=== PATIENT | male | born 1975 | race Caucasian/White ===

== ENCOUNTER 2018-04-24 17:59 | Emergency (ER) | payer SELFPAY ==
[2018-04-24 18:39] VITALS: BP 129/76
--- NOTE | 2018-04-24 20:07 | XRay Report ---
FINAL REPORT EXAM: XR HAND 3+V RT HISTORY: pain/swelling r/t puncture wound from nail old injury 4th metacarpal. New injury to the base of the index finger TECHNIQUE: Three views right hand Comparison: None FINDINGS: Old fracture base 4th metacarpal. No fracture or dislocation of the index finger. No radiopaque foreign body or soft tissue gas. There is an ill-defined irregularity of the mid to distal 1st metacarpal shaft cortex which appears to be an artifact on the oblique image. IMPRESSION: Old comminuted fracture of the base of the 4th metacarpal. Irregularity of the cortex of the 1st metacarpal shaft on the oblique image only appears to be artifactual. No radiopaque foreign body, soft tissue gas or fracture.
== END 2018-04-24 21:00 | disposition left against medical advice (07) ==
LOC: ED 17:59
DX: M79.641 Pain in right hand (principal); Z53.21 Procedure and treatment not carried out due to patient leaving prior to being seen by health care provider